=== PATIENT | male | born 1995 | race Caucasian/White ===

== ENCOUNTER 2017-10-17 17:44 | Emergency (ER) | payer OTHER ==
[~2017-10-17] VITALS: Ht 180.3 cm; Wt 80.7 kg
[2017-10-17 17:49] VITALS: BP 147/86; PULSE 83; RESP 16; TEMP 98.6; O2SAT 97
[2017-10-17] MEDS ORDERED: TETANUS/DIPHTHERIA TOXOID ADULT 0.5 ML VIAL IM ONE (18:15)
[2017-10-17] MEDS ORDERED: ACETAMINOPHEN 500 MG CPLT PO ONE (18:15)
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
--- NOTE | 2017-10-17 19:18 | PD ---
Physical Exam Date Seen by Provider: October 17, 2017 Time Seen by Provider: 19:13 Narrative Accepted in transfer of care from Dr. Gomez GENERAL: Well-developed well-nourished male no acute distress no respiratory distress; GCS 15; no stridor or hoarseness. SKIN: Warm and dry. Superficial abrasions to the right lower face and anterior neck. HEAD: Normocephalic. EYES: No scleral icterus. No injection or drainage. ENT: Airway is patent dentition intact no malocclusion soft tissue abrasions to the right upper lip and right lower face as well as to anterior neck; tympanic membranes no redness no dullness no loss of landmarks no perforation, external auditory canals without debris or foreign body identified. NECK: Supple, trachea midline. No JVD or lymphadenopathy. No soft tissue swelling no ecchymosis abrasions are noted trachea is midline. CARDIOVASCULAR: Regular rate and rhythm without murmurs, gallops, or rubs. RESPIRATORY: Breath sounds equal bilaterally. No accessory muscle use. Data Data Last Documented VS Vital Signs Date Time Temp Pulse Resp B/P (MAP) Pulse Ox O2 Delivery O2 Flow Rate FiO2 10/17/17 17:49 98.6 83 16 147/86 (106) 97 Orders Orders Chest, Single Ap (10/17/17 ) Ct Facial Bones W/O Iv Cont (10/17/17 ) Ct Soft Tiss Neck W/O Iv Cont (10/17/17 ) Tetanus/Diphtheria Tox Adult (Tetanus/Di (10/17/17 18:15) Acetaminophen (Tylenol) (10/17/17 18:15) Ed Discharge Order (10/17/17 20:04) [facility] Medical Record Reviewed: Yes Supervised Visit with FRIDA: No Interpretation(s) Vital Signs Date Time Temp Pulse Resp B/P (MAP) Pulse Ox O2 Delivery O2 Flow Rate FiO2 10/17/17 17:49 98.6 83 16 147/86 (106) 97 CXR: FINDINGS: A single view of the chest demonstrates the lungs to be symmetrically aerated without evidence of mass, infiltrate or effusion. The cardiomediastinal contours are unremarkable. Osseous structures are intact. CONCLUSION: Normal examination. Jose A Conroy MD on October 17, 2017 at 18:49 Board Certified Radiologist. This report was verified electronically. facial bones: CONCLUSION: 1. No acute bony abnormalities. Paranasal sinuses are clear. Jose A Conroy MD on October 17, 2017 at 19:17 Board Certified Radiologist. This report was verified electronically. CT soft tissue neck: CONCLUSION: 1. No acute findings on noncontrast neck CT. Jose A Conroy MD on October 17, 2017 at 19:18 Board Certified Radiologist. This report was verified electronically. Differential Diagnosis Accepted in transfer of care from Dr. Gomez; please refer to her dicatation Narrative Course Accepted in transfer of care from Dr. Gomez; follow up CT studies and disposition ; patient only complains of right sided diminished hearing Patient informed of imaging results and is stable for outpatient management. Patient will require close follow-up severe nose and throat specialist. Patient is to contact his [employer] provider to refer him to an grinder set up operator gear tool regarding his barotrauma. Patient given instructions to follow for abrasion care. Patient is encouraged to return immediately to the emergency department for any concerns or change in condition. Diagnosis Primary Impression: Ear barotrauma Qualified Codes: T70.0XXA - Otitic barotrauma, initial encounter Additional Impression: Abrasion of multiple sites of head and neck Qualified Codes: S00.91XA - Abrasion of unspecified part of head, initial encounter; S10.91XA - Abrasion of unspecified part of neck, initial encounter Referrals: Ear / Nose / Throat Specialist call for appointment Follow up/appointment with ENT specialist therough your worker's comp provider Patient Instructions: General Instructions Additional Instruction: Follow-up with grinder set up operator gear tool; application infrastructure engineer Dr Tilley Follow-up with [facility] [employer]. provider May use acetaminophen or ibuprofen per package directions as needed for discomfort Keep wound sites/abrasions clean and dry May apply ice intermittently to areas of soft tissue swelling or discomfort for the first 12-24 hrs. Return to the emergency department for any concerns or change in condition Scripts No Active Prescriptions or Reported Meds Disposition: 01 DISCHARGE HOME Condition: Stable Vero Del Rosario MD October 17, 2017 19:18
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
[2017-10-17 20:49] VITALS: BP 143/70
== END 2017-10-17 20:50 | disposition home or self-care (01) ==
LOC: PHED 17:44
DX: T70.0XXA Otitic barotrauma, initial encounter (principal); S00.91XA Abrasion of unspecified part of head, initial encounter; S10.91XA Abrasion of unspecified part of neck, initial encounter; J45.909 Unspecified asthma, uncomplicated; W37.8XXA Explosion and rupture of other pressurized tire, pipe or hose, initial encounter; Z23 Encounter for immunization
CPT/HCPCS: 70486; 70490; 71045; 90471; 90714